=== PATIENT | female | born 1960 | race Caucasian/White ===

== ENCOUNTER → 2017-05-21 16:34 | Outpatient (CLI) | payer BC ==
[2016-07-05 06:03] VITALS: BMI 31.7
[~2017-05-21 16:34] MED LIST: BUMEX 1 MG TAB1 MG PO; CATAPRES0.2 MG PO; COZAAR100 MG PO; CYMBALTA60 MG PO; FOLIC ACID1 MG PO; GLUCOPHAGE500 MG PO; METHOTREXATE2.5 MG PO; NAPROSYN500 MG PO; PERCOCET 10/3251 TA1 PO; PERCOCET 7.5/321 TAB PO; PREDNISONE5 MG PO; SYNTHROID75 MCG PO; ZANAFLEX4 MG PO
== END | disposition home or self-care (01) ==
LOC: D.MAMMO 08:15
DX: Z12.31 Encounter for screening mammogram for malignant neoplasm of breast (principal)

== ENCOUNTER 2020-05-18 14:30 | Outpatient (CLI) | payer OTHER ==
[2019-11-25 13:30] VITALS: BMI 29.3
== END 2020-05-18 23:59 | disposition home or self-care (01) ==
LOC: D.MAMMO 14:30
PROVIDERS: ATTEND Family Medicine
DX: Z12.31 Encounter for screening mammogram for malignant neoplasm of breast (principal)

== ENCOUNTER → 2020-07-22 14:56 | Outpatient (CLI) | payer OTHER ==
[2019-11-25 13:30] VITALS: BMI 29.3
== END | disposition home or self-care (01) ==
LOC: D.CT 14:56
PROVIDERS: ATTEND Family Medicine
DX: R10.30 Lower abdominal pain, unspecified (principal); R35.0 Frequency of micturition